=== PATIENT | male | born 1965 | race Two or more races ===

== ENCOUNTER 2021-10-22 21:13 | Emergency (ER) | payer BC ==
[~2021-10-22] VITALS: Ht 175.3 cm; Wt 74.8 kg
[~2021-10-22 21:13] MED LIST: ALBU18HF2 INH; ATOR40TA PO; Benzocaine/Menth/Cetylpyrd Cl MM; GUAI5SYR4 PO; LEVO750T21 PO; METF-442 PO; PRED20TA PO
--- NOTE | 2021-10-22 21:24 | NUR ---
PT AMBULATED W/ STEADY GAIT TO ER C/O RT CALF PAIN AND SWELLING X 3 DAYS. A/O X4, NO SOB OR LABORED BREATHING, AFEBRILE. DENIES CP/PRESSURE. NO GI/ DISTRESS.
--- NOTE | 2021-10-22 21:50 | NUR ---
DR. WALKER AT BEDSIDE, MSE IN PROGRESS.
--- NOTE | 2021-10-22 22:48 | NUR ---
The patient is AMA per ER.
--- NOTE | 2021-10-22 23:00 | NUR ---
PT REFUSED ULTRASOUND DESPITE EDUCATION BY RN AND DR. WALKER.
--- NOTE | 2021-10-22 23:09 | NUR ---
Patient discharged to home in stable condition. Written and verbal after care instructions given. Patient verbalizes understanding of instructions. Stressed follow up or return to ER for worsening s/s. Steady gait, denies any pain/discomfort upon discharge.
[2021-10-22 23:10] VITALS: BP 117/89
== END 2021-10-22 23:10 | disposition home or self-care (01) ==
LOC: ER 21:15
DX: S96.811A Strain of other specified muscles and tendons at ankle and foot level, right foot, initial encounter (principal); X50.3XXA Overexertion from repetitive movements, initial encounter; Y93.89 Activity, other specified; Y92.89 Other specified places as the place of occurrence of the external cause; E11.9 Type 2 diabetes mellitus without complications; Z79.84 Long term (current) use of oral hypoglycemic drugs
CPT/HCPCS: A4663